=== PATIENT | male | born 1955 | race American Indian/Alaskan Native ===

== ENCOUNTER 2019-04-29 11:08 | Emergency (ER) | payer SELFPAY ==
[2019-04-29] MEDS ORDERED: ASPIRIN 325 MG TAB PO ONE (11:27)
--- NOTE | 2019-04-29 11:51 | Emergency Department Report ---
ED Chest Pain HPI - General Chief Complaint: Chest Pain Stated Complaint: CHEST PAIN,LEFT ARM PAIN Time Seen by Provider: 04/29/19 11:38 Source: patient Mode of arrival: Ambulatory Limitations: No Limitations - History of Present Illness Initial Comments: 63-year-old -[place] male presents to the emergency department from home with complaint of chest pain with radiation to the arm and shortness of breath. Overall the patient says that this been going on for the past week. Last Wednesday he had very sharp midsternal chest pain that radiated down his left arm. The chest pain resolved but he still complains of pain in the arm for the past week. However, this morning the patient says that the chest pain returned. It is currently 8 out of 10 in intensity. It is also associated with some nausea without vomiting. He has a past medical history of borderline diabetes, hypertension. He is a tobacco smoker but denies any illicit drug use. No family history of early cardiac disease or events. No recent travel or sick contacts at home. 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 He has not taken anything for her symptoms prior to arrival today. Severity scale (0 -10): 9 - Related Data Allergies Allergy/AdvReac Type Severity Reaction Status Date / Time No Known Allergies Allergy Verified 04/29/19 11:41 Heart Score - HEART Score History: Slightly suspicious EKG: Non-specific Age: 45-65 Risk factors: 1-2 risk factors Troponin: < normal limit HEART Score: 3 - Critical Actions Critical Actions: 4-6 pts:12-16.6% risk of adverse cardiac event. Should be admitted ED Review of Systems ROS: Stated complaint: CHEST PAIN,LEFT ARM PAIN Other details as noted in HPI Comment: All other systems reviewed and negative Constitutional: diaphoresis. denies: fever Eyes: denies: eye pain ENT: denies: ear pain, throat pain Respiratory: shortness of breath. denies: cough Cardiovascular: chest pain. denies: palpitations Gastrointestinal: nausea. denies: abdominal pain Genitourinary: denies: dysuria, discharge Musculoskeletal: arthralgia, myalgia. denies: joint swelling Skin: denies: rash, lesions Neurological: denies: headache, numbness ED Past Medical Hx - Past Medical History Hx Hypertension: Yes Hx Diabetes: Yes - Surgical History Additional Surgical History: left arm surgery - Social History Smoking Status: Current Every Day Smoker Substance Use Type: None ED Physical Exam - General Limitations: No Limitations - Other Other exam information: GENERAL: The patient is well-developed well-nourished. HENT: Normocephalic. Atraumatic. Patient has moist mucous membranes. EYES: Extraocular motions are intact. He appears to have a right-sided strabismus. Pupils equal reactive to light bilaterally. NECK: Supple. Trachea is midline. CHEST/LUNGS: Clear to auscultation. There is no respiratory distress noted. HEART/CARDIOVASCULAR: Regular. There is no tachycardia. There is no murmur. ABDOMEN: Abdomen is soft, nontender. Patient has normal bowel sounds. Obese cotton bitus. SKIN: Skin is warm and dry. NEURO: The patient is awake, alert, and oriented. The patient is cooperative. The patient has no focal neurologic deficits. Normal speech. MUSCULOSKELETAL: There is no tenderness or deformity. There is no limitation range of motion. There is no evidence of acute injury. ED Course Vital Signs 04/29/19 04/29/19 04/29/19 11:26 11:47 12:26 Temperature 98.0 F Pulse Rate 85 71 89 Respiratory 16 14 Rate Blood Pressure 148/93 127/86 Blood Pressure 139/81 [Right] O2 Sat by Pulse 96 98 Oximetry ANDRADE score - Andrade Score Age > 65: (0) No Aspirin use within the Past 7 Days: (0) No 3 or more CAD Risk Factors: (0) No 2 or more Angina events in past 24 hrs: (1) Yes Known CAD with more than 50% Stenosis: (0) No Elevated Cardiac Markers: (0) No ST Deviation Greater than 0.5mm: (0) No ANDRADE Score: 1 ED Medical Decision Making - Lab Data Result diagrams: 04/29/19 11:47 04/29/19 11:47 - EKG Data -: EKG Interpreted by Me EKG shows normal: sinus rhythm, axis (left axis deviation), intervals, QRS comp lexes (left anterior fascicular block), ST-T waves Rate: normal - EKG Data When compared to previous EKG there are: previous EKG unavailable Interpretation: other (sinus rhythm, left axis deviation, left anterior fascicular block) - Radiology Data Radiology results: image reviewed interpreted by me: Chest x-ray does not show any acute process. There are no pleural effusions, obvious pneumonia and there is no pneumothorax. - Medical Decision Making This patient presents to the emergency department with some chest pain that occurred one week ago and then again this morning. By the time he presented to the emergency department the chest pain was mild and has since resolved. EKG d id not show any ST elevation UT or dysrhythmia. His labs have been unremarkable including negative troponins 2 and a negative d-dimer. His vital signs are stable throughout his ED course. He has been reevaluated multiple times over multiple hours and the symptoms have not returned. The patient is resting comfortably, jovial, talking on the cell phone. Patient has a low heart and ANDRADE score. The patient's contact information has been sent to [facility] for close outpatient follow-up. He has been given some referrals for primary care. We discussed smoking cessation. The patient will return to the ER with any worsening of his symptoms or any acute distress. - Differential Diagnosis UT, PE, costochondritis, GERD Critical Care Time: No Critical care attestation.: If time is entered above; I have spent that time in minutes in the direct care of this critically ill patient, excluding procedure time. ED Disposition Clinical Impression: Chest pain Qualifiers: Chest pain type: unspecified Qualified Code(s): R07.9 - Chest pain, unspecified Disposition: DC-01 TO HOME OR SELFCARE Is pt being admited?: No Condition: Stable Instructions: Chest Pain (ED) Additional Instructions: Please follow-up with a primary care physician in the next few days. Please try and quit smoking. I have sent your contact information over to [facility] and someone from their office should be contacting you shortly for close outpatient follow-up. Return to the emergency Department with any return of your chest pain, worsening of your symptoms, or with any acute distress. Referrals: [facility] [Provider Group] - 2-3 Days PRIMARY CARE, [Primary Care Provider] - 2-3 Days YANETH BOWMAN MD [Staff Physician] - 2-3 Days Time of Disposition: 15:10
[2019-04-29] MEDS ORDERED: NITROGLYCERIN 0.4 MG TAB SUBL SL ONE (11:52)
[2019-04-29 12:25] LABS: Basophils % (Auto) 0.6 % (0.0-1.8); Eosinophils # (Auto) 0.1 K/mm3 (0.0-0.4); Eosinophils % (Auto) 1.2 % (0.0-4.3); Hematocrit 47.3 % (35.5-45.6); Hemoglobin 15.6 gm/dl (11.8-15.2); Lymphocytes # (Auto) 3.5 K/mm3 (1.2-5.4); Lymphocytes % (Auto) 43.8 % (13.4-35.0); Mean Corpuscular HGB Conc 33 % (32-34); Mean Corpuscular Volume 89 fl (84-94); Monocytes # (Auto) 0.5 K/mm3 (0.0-0.8); Monocytes % (Auto) 5.9 % (0.0-7.3); Red Blood Count 5.31 M/mm3 (3.65-5.03); Red Cell Distribution Width 16.8 % (13.2-15.2)
[2019-04-29 12:28] LABS: INR 1.06 (0.87-1.13)
[2019-04-29 12:29] LABS: Partial Thromboplastin Time 32.2 Sec. (24.2-36.6)
--- NOTE | 2019-04-29 12:29 | XRay Report ---
CHEST 1 VIEW 04/29/2019 12:09 PM INDICATION / CLINICAL INFORMATION: Chest Pain. COMPARISON: None available. FINDINGS: SUPPORT DEVICES: None. HEART / MEDIASTINUM: No significant abnormality. LUNGS / PLEURA: No significant pulmonary or pleural abnormality. No pneumothorax. ADDITIONAL FINDINGS: No significant additional findings. IMPRESSION: 1. No acute findings. Signer Name: Kiel Ram MD Signed: 04/29/2019 12:25 PM Workstation Name: [id number]
[2019-04-29 12:40] LABS: BUN/Creatinine Ratio 16; Blood Urea Nitrogen 14 mg/dL (9-20); Calcium 10.3 mg/dL (8.4-10.2); Hemolysis Index 4
[2019-04-29 12:56] LABS: Platelet Count 145 K/mm3 (140-440)
[2019-04-29 15:10] VITALS: BP 143/88
== END 2019-04-29 15:11 | disposition home or self-care (01) ==
LOC: ED 11:08
DX: R07.2 Precordial pain (principal); I10 Essential (primary) hypertension; E11.9 Type 2 diabetes mellitus without complications; F17.200 Nicotine dependence, unspecified, uncomplicated
CPT/HCPCS: 36415; 71045; 80048; 84484; 85025; 85379; 85610; 85730; 93005; 93010; 99284